=== PATIENT | female | born 1980 | race Caucasian/White ===

== ENCOUNTER → 2021-10-26 08:56 | Outpatient (BNVA) | payer MEDICAID, SELFPAY | PROVIDERS: Visit Provider Internal Medicine | DX: L40.50 Arthropathic psoriasis, unspecified (principal); Z11.59 Encounter for screening for other viral diseases; Z11.1 Encounter for screening for respiratory tuberculosis; F17.210 Nicotine dependence, cigarettes, uncomplicated | CPT/HCPCS: 99204 ==

== ENCOUNTER → 2022-01-10 14:14 | Outpatient (BNVA) | payer MEDICAID, SELFPAY | PROVIDERS: Visit Provider Internal Medicine | DX: L40.50 Arthropathic psoriasis, unspecified (principal); F17.210 Nicotine dependence, cigarettes, uncomplicated | CPT/HCPCS: 99213 ==

== ENCOUNTER → 2022-05-21 13:07 | Outpatient (BNVA) | payer MEDICAID, SELFPAY | PROVIDERS: PCP Obstetrics & Gynecology; Visit Provider Internal Medicine | DX: L40.50 Arthropathic psoriasis, unspecified (principal) | CPT/HCPCS: 36415; 80053; 85025; 99214 ==

== ENCOUNTER → 2023-02-12 09:49 | Outpatient (BNVA) | payer MEDICAID, SELFPAY | PROVIDERS: PCP Obstetrics & Gynecology; Visit Provider Internal Medicine | DX: L40.50 Arthropathic psoriasis, unspecified (principal); G89.29 Other chronic pain; M54.50 Low back pain, unspecified | CPT/HCPCS: 99214 ==